=== PATIENT | female | born 1940 | race Caucasian/White ===

== ENCOUNTER → 2019-07-30 15:32 | Outpatient (BNVA) | payer MEDICARE, BC, SELFPAY | PROVIDERS: Family Provider Family Medicine; PCP Family Medicine; Visit Provider Family Medicine | DX: E03.9 Hypothyroidism, unspecified (principal); E11.65 Type 2 diabetes mellitus with hyperglycemia; G47.00 Insomnia, unspecified; J44.9 Chronic obstructive pulmonary disease, unspecified; I10 Essential (primary) hypertension; G62.9 Polyneuropathy, unspecified; F41.8 Other specified anxiety disorders | CPT/HCPCS: 80053; 80061; 83036; 84443; 85025 ==

== ENCOUNTER → 2019-08-13 10:24 | Outpatient (BNVA) | payer MEDICARE, BC, SELFPAY | PROVIDERS: Family Provider Family Medicine; PCP Family Medicine; Referring Provider Specialist; Visit Provider Chiropractor | DX: M51.36 Other intervertebral disc degeneration, lumbar region (principal); M47.816 Spondylosis without myelopathy or radiculopathy, lumbar region; M48.062 Spinal stenosis, lumbar region with neurogenic claudication; M54.12 Radiculopathy, cervical region; M47.812 Spondylosis without myelopathy or radiculopathy, cervical region; M62.830 Muscle spasm of back; Z79.891 Long term (current) use of opiate analgesic | CPT/HCPCS: 99205 ==

== ENCOUNTER → 2019-08-20 13:24 | Outpatient (BNVA) | payer MEDICARE, BC, SELFPAY | PROVIDERS: Family Provider Family Medicine; PCP Family Medicine; Visit Provider Anesthesiology Pain Medicine | DX: M47.816 Spondylosis without myelopathy or radiculopathy, lumbar region (principal); M48.062 Spinal stenosis, lumbar region with neurogenic claudication; Z79.891 Long term (current) use of opiate analgesic | CPT/HCPCS: 64493; 64494; 64495; 64520; J2001; J3490 ==

== ENCOUNTER → 2019-10-31 14:36 | Outpatient (BNVA) | payer MEDICARE, BC, SELFPAY | PROVIDERS: Family Provider Family Medicine; PCP Family Medicine; Visit Provider Family Medicine | DX: E78.5 Hyperlipidemia, unspecified (principal); E11.65 Type 2 diabetes mellitus with hyperglycemia; E03.9 Hypothyroidism, unspecified; J44.9 Chronic obstructive pulmonary disease, unspecified; J43.9 Emphysema, unspecified; I10 Essential (primary) hypertension; M54.12 Radiculopathy, cervical region | CPT/HCPCS: 80053; 80061; 83036; 84443; 85025 ==

== ENCOUNTER → 2020-02-13 09:48 | Outpatient (BNVA) | payer MEDICARE, BC, SELFPAY | PROVIDERS: Family Provider Family Medicine; PCP Family Medicine; Visit Provider Anesthesiology Pain Medicine | DX: M48.062 Spinal stenosis, lumbar region with neurogenic claudication (principal); M47.816 Spondylosis without myelopathy or radiculopathy, lumbar region; M51.36 Other intervertebral disc degeneration, lumbar region; M54.12 Radiculopathy, cervical region; M47.812 Spondylosis without myelopathy or radiculopathy, cervical region; M62.830 Muscle spasm of back; Z79.891 Long term (current) use of opiate analgesic | CPT/HCPCS: 99213 ==

== ENCOUNTER → 2020-02-25 14:21 | Outpatient (BNVA) | payer MEDICARE, BC, SELFPAY | PROVIDERS: Family Provider Family Medicine; PCP Family Medicine; Visit Provider Anesthesiology Pain Medicine | DX: M47.816 Spondylosis without myelopathy or radiculopathy, lumbar region (principal); M48.062 Spinal stenosis, lumbar region with neurogenic claudication; Z79.891 Long term (current) use of opiate analgesic | CPT/HCPCS: 64493; 64494; 64495; J3490 ==

== ENCOUNTER → 2020-03-12 10:43 | Outpatient (BNVA) | payer MEDICARE, BC, SELFPAY | PROVIDERS: Family Provider Family Medicine; PCP Family Medicine; Visit Provider Anesthesiology Pain Medicine | DX: M48.062 Spinal stenosis, lumbar region with neurogenic claudication (principal); M51.36 Other intervertebral disc degeneration, lumbar region; M47.816 Spondylosis without myelopathy or radiculopathy, lumbar region; M54.12 Radiculopathy, cervical region; M47.812 Spondylosis without myelopathy or radiculopathy, cervical region; M62.830 Muscle spasm of back; Z79.891 Long term (current) use of opiate analgesic | CPT/HCPCS: 99213 ==

== ENCOUNTER → 2020-03-14 11:02 | Outpatient (BNVA) | payer MEDICARE, BC, SELFPAY | PROVIDERS: Family Provider Family Medicine; PCP Family Medicine; Visit Provider Family Medicine | DX: E78.5 Hyperlipidemia, unspecified (principal); E11.65 Type 2 diabetes mellitus with hyperglycemia; I10 Essential (primary) hypertension; J20.9 Acute bronchitis, unspecified | CPT/HCPCS: 80053; 80061; 83036; 84443; 85025 ==

== ENCOUNTER → 2020-04-09 12:50 | Outpatient (BNVA) | payer MEDICARE, BC, SELFPAY | PROVIDERS: Family Provider Family Medicine; PCP Family Medicine; Visit Provider Anesthesiology Pain Medicine | DX: M47.816 Spondylosis without myelopathy or radiculopathy, lumbar region (principal); M48.062 Spinal stenosis, lumbar region with neurogenic claudication; Z79.891 Long term (current) use of opiate analgesic | CPT/HCPCS: 64635; 64636; J1030 ==

== ENCOUNTER → 2020-04-29 14:20 | Outpatient (BNVA) | payer MEDICARE, BC, SELFPAY | PROVIDERS: Family Provider Family Medicine; PCP Family Medicine; Visit Provider Anesthesiology Pain Medicine | DX: M47.816 Spondylosis without myelopathy or radiculopathy, lumbar region (principal); M48.062 Spinal stenosis, lumbar region with neurogenic claudication; Z79.891 Long term (current) use of opiate analgesic | CPT/HCPCS: 64635; 64636; J1030 ==

== ENCOUNTER → 2020-05-15 12:59 | Outpatient (BNVA) | payer MEDICARE, BC, SELFPAY | PROVIDERS: Family Provider Family Medicine; PCP Family Medicine; Visit Provider Anesthesiology Pain Medicine | DX: M47.816 Spondylosis without myelopathy or radiculopathy, lumbar region (principal); M48.062 Spinal stenosis, lumbar region with neurogenic claudication; M51.36 Other intervertebral disc degeneration, lumbar region; M54.12 Radiculopathy, cervical region; M47.812 Spondylosis without myelopathy or radiculopathy, cervical region; M79.605 Pain in left leg; M62.830 Muscle spasm of back | CPT/HCPCS: 99214 ==

== ENCOUNTER → 2020-05-27 14:03 | Outpatient (BNVA) | payer MEDICARE, BC, SELFPAY | PROVIDERS: Family Provider Family Medicine; PCP Family Medicine; Visit Provider Anesthesiology Pain Medicine | DX: M48.061 Spinal stenosis, lumbar region without neurogenic claudication (principal); M48.062 Spinal stenosis, lumbar region with neurogenic claudication; M54.16 Radiculopathy, lumbar region; Z79.891 Long term (current) use of opiate analgesic | CPT/HCPCS: 64483; 64484; J1100; J3490 ==

== ENCOUNTER → 2020-06-12 13:24 | Outpatient (BNVA) | payer MEDICARE, BC, SELFPAY | PROVIDERS: Family Provider Family Medicine; PCP Family Medicine; Visit Provider Anesthesiology Pain Medicine | DX: M47.816 Spondylosis without myelopathy or radiculopathy, lumbar region (principal); M48.062 Spinal stenosis, lumbar region with neurogenic claudication; M51.36 Other intervertebral disc degeneration, lumbar region; M54.12 Radiculopathy, cervical region; M47.812 Spondylosis without myelopathy or radiculopathy, cervical region; M62.830 Muscle spasm of back; Z79.891 Long term (current) use of opiate analgesic | CPT/HCPCS: 99213 ==

== ENCOUNTER → 2020-08-12 14:01 | Outpatient (BNVA) | payer MEDICARE, BC, SELFPAY | PROVIDERS: Family Provider Family Medicine; PCP Family Medicine; Visit Provider Anesthesiology Pain Medicine | DX: M47.816 Spondylosis without myelopathy or radiculopathy, lumbar region (principal); M48.062 Spinal stenosis, lumbar region with neurogenic claudication; M51.36 Other intervertebral disc degeneration, lumbar region; M54.12 Radiculopathy, cervical region; M47.812 Spondylosis without myelopathy or radiculopathy, cervical region; M62.830 Muscle spasm of back | CPT/HCPCS: 99214 ==

== ENCOUNTER → 2020-09-09 15:37 | Outpatient (BNVA) | payer MEDICARE, BC, SELFPAY | PROVIDERS: Family Provider Family Medicine; PCP Family Medicine; Visit Provider Family Medicine | DX: E78.5 Hyperlipidemia, unspecified (principal); E03.9 Hypothyroidism, unspecified; E11.65 Type 2 diabetes mellitus with hyperglycemia; I10 Essential (primary) hypertension; Z68.34 Body mass index [BMI] 34.0-34.9, adult; F17.211 Nicotine dependence, cigarettes, in remission | CPT/HCPCS: 80053; 80061; 83036; 84443; 85025 ==

== ENCOUNTER → 2020-10-23 13:00 | Outpatient (BNVA) | payer MEDICARE, BC, SELFPAY | PROVIDERS: Family Provider Family Medicine; PCP Family Medicine; Visit Provider Anesthesiology Pain Medicine | DX: M48.062 Spinal stenosis, lumbar region with neurogenic claudication (principal); M47.816 Spondylosis without myelopathy or radiculopathy, lumbar region; M51.36 Other intervertebral disc degeneration, lumbar region; M54.12 Radiculopathy, cervical region; M47.812 Spondylosis without myelopathy or radiculopathy, cervical region; M62.830 Muscle spasm of back; Z79.891 Long term (current) use of opiate analgesic | CPT/HCPCS: 99214 ==

== ENCOUNTER → 2020-11-03 13:30 | Outpatient (BNVA) | payer MEDICARE, BC, SELFPAY | PROVIDERS: Family Provider Family Medicine; PCP Family Medicine; Visit Provider Anesthesiology Pain Medicine | DX: Z01.812 Encounter for preprocedural laboratory examination (principal); E11.9 Type 2 diabetes mellitus without complications; M54.16 Radiculopathy, lumbar region; M48.062 Spinal stenosis, lumbar region with neurogenic claudication | CPT/HCPCS: 64483; 64484 ==

== ENCOUNTER → 2020-11-18 09:12 | Outpatient (BNVA) | payer MEDICARE, BC, SELFPAY | PROVIDERS: Family Provider Family Medicine; PCP Family Medicine; Visit Provider Anesthesiology Pain Medicine | DX: M47.816 Spondylosis without myelopathy or radiculopathy, lumbar region (principal); M48.062 Spinal stenosis, lumbar region with neurogenic claudication; M54.12 Radiculopathy, cervical region; M51.36 Other intervertebral disc degeneration, lumbar region; M47.812 Spondylosis without myelopathy or radiculopathy, cervical region; M62.830 Muscle spasm of back; Z87.891 Personal history of nicotine dependence | CPT/HCPCS: 99213 ==

== ENCOUNTER → 2020-12-18 17:17 | Outpatient (BNVA) | payer MEDICARE, BC, SELFPAY | PROVIDERS: Family Provider Family Medicine; PCP Family Medicine; Visit Provider Family Medicine | DX: E03.9 Hypothyroidism, unspecified (principal); E11.65 Type 2 diabetes mellitus with hyperglycemia; E55.9 Vitamin D deficiency, unspecified; E78.5 Hyperlipidemia, unspecified; I10 Essential (primary) hypertension; J43.9 Emphysema, unspecified | CPT/HCPCS: 80053; 80061; 82306; 82607; 83036; 84443; 85025 ==

== ENCOUNTER → 2021-01-20 08:58 | Outpatient (BNVA) | payer MEDICARE, BC, SELFPAY | PROVIDERS: Family Provider Family Medicine; PCP Family Medicine; Visit Provider Anesthesiology Pain Medicine | DX: M48.062 Spinal stenosis, lumbar region with neurogenic claudication (principal); M47.816 Spondylosis without myelopathy or radiculopathy, lumbar region; M51.36 Other intervertebral disc degeneration, lumbar region; M54.12 Radiculopathy, cervical region; M47.812 Spondylosis without myelopathy or radiculopathy, cervical region; M62.830 Muscle spasm of back | CPT/HCPCS: 99213 ==

== ENCOUNTER 2021-02-08 11:59 | Emergency (ER) | payer MEDICARE, BC, SELFPAY ==
--- NOTE | 2021-02-08 12:01 | CTR_ITS ---
PROCEDURE INFORMATION: Exam: CT Abdomen And Pelvis With Contrast Exam date and time: 02/08/2021 12:01 PM Age: 80 years old Clinical indication: Abdominal pain; Localized; Right; Additional info: Rlq severe pain TECHNIQUE: Imaging protocol: Computed tomography of the abdomen and pelvis with contrast. Radiation optimization: All CT scans at this facility use at least one of these dose optimization techniques: automated exposure control; mA and/or kV adjustment per patient size (includes targeted exams where dose is matched to clinical indication); or iterative reconstruction. Contrast material: OMNI 300; Contrast volume: 95 ml; Contrast route: INTRAVENOUS (IV); COMPARISON: CT abdomen pelvis w con* [id number] 09/19/2017 3:23 PM RADIATION DOSE METRICS: Total DLP (mGy-cm): 1693.31 FINDINGS: Liver: Findings consistent with fatty infiltration of the liver are identified. Gallbladder and bile ducts: There has been a cholecystectomy. Pancreas: Normal. No ductal dilation. Spleen: Normal. No splenomegaly. Adrenal glands: Normal. No mass. Kidneys and ureters: Normal. No hydronephrosis. Stomach and bowel: Unremarkable. No obstruction. No mucosal thickening. Appendix: The appendix is not seen. Intraperitoneal space: Unremarkable. No free air. No significant fluid collection. Vasculature: Unremarkable. No abdominal aortic aneurysm. Lymph nodes: Unremarkable. No enlarged lymph nodes. Urinary bladder: Unremarkable as visualized. Reproductive: There has been a hysterectomy. Bones/joints: Degenerative change is identified in the spine. There is no evidence for acute fracture or malalignment. Soft tissues: Unremarkable. CT/CT abdomen pelvis w con* [id number] IMPRESSION: There are no acute concerning abnormalities. Radiation Dose CTDIVOL = (mGy): DLP = 1693.31 (mGy-cm)
[2021-02-08 12:23] VITALS: BP 143/63; PULSE 55; RESP 16; TEMP 36.5; O2SAT 98
--- NOTE | 2021-02-08 12:23 | ED_ITS ---
HPI - General Adult General: Chief complaint: Abdominal Pain Stated complaint: PAIN IN LOWER R SIDE Time Seen by Provider: 02/08/21 12:01 History of Present Illness: HPI narrative: 80-year-old female with a history of prediabetes, prior appendectomy, and hysterectomy presents emergency room for evaluation of sharp right-sided abdominal pain x1 day. Patient states that she was at rest when this pain started. Since then, patient has had intermittent sharp crampy pain on the right side of her abdomen radiating into his the middle. Patient has nausea denies vomiting. Took a dose of hydrocodone without any improvement in symptoms. Patient has no fever no chills, diarrhea, melena hematochezia, complaints or vaginal complaints at this time. Denies any chest pain shortness breath, palpitation or lightheadedness, cough, runny nose, sore throat or other neurological complaints. Onset: 1 day ago Duration:1 day Location:home Severity:moderate Review of Systems Narrative: Constitutional: No fever, no chills. HEENT: No vision changes CV: No chest pain, no palpitations PULM: no cough, no dyspnea. GI: + R sided abdominal pain, +N/-V/-D. : No dysuria MSKEL: No muscle pain SKIN: No new rashes, no lesions. NEURO: No headache, no focal weakness. 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 Benign essential hypertension Chronic idiopathic constipation COPD (chronic obstructive pulmonary disease) with emphysema Dyslipidemia Encounter for counseling for care management of patient with chronic conditions and complex health needs using nurse-based model Enrolled in chronic care management Generalized osteoarthritis of multiple sites History of colon polyps Idiopathic neuropathy Joint instability Lumbar stenosis with neurogenic claudication Mild cognitive impairment Obstructive sleep apnea Polyneuropathy, peripheral sensorimotor axonal Spondylolisthesis, 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 Type 2 diabetes mellitus with hyperglycemia Vitamin D deficiency Surgical History Hx of appendectomy Hx of cholecystectomy Hx of colonoscopy (~11/2017) repeat 5 yrs Hx of hysterectomy Hx of repair of left rotator cuff (~2013) distal clavicle resection and acromaplasty and exploration rotor cuff; Dr Clarke, [place] [facility] [place]; 02/20/2019 Family History Mother CAD (coronary artery disease) Sister CAD (coronary artery disease) Cancer lung Social History Smoking and tobacco status: former smoker Second hand smoke exposure: No Alcohol intake: never Household members: spouse Housing: House Marital status: Current occupational status: retired 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 No CVA tenderness to percussion. Neg Motta/Neg McBurney's point tenderness, no suprabupic tenderness to palpation. EXTREMITY: Normal ROM SKIN: No rash or erythema NEURO: Awake and alert, no focal motor deficits PSYCH: Normal mood and affect Course Vital Signs: Vital signs: Vital Signs Temperature 97.7 F 02/08/21 12:23 Pulse Rate 55 L 02/08/21 12:23 Respiratory Rate 16 02/08/21 13:07 Blood Pressure 143/63 02/08/21 12:23 Pulse Oximetry 98 02/08/21 12:23 MDM - General Adult MDM Narrative: Medical decision making narrative: 80-year-old female with a history of prediabetes, prior appendectomy, hysterectomy presenting to the emergency room with complaints of right side abdominal pain x1 day. On exam precaution has moderate tenderness to palpation on the right side of the abdomen. White count of 11.9. EKG showing regular sinus rhythm at HT of [56]. Normal axis. No ST elevations/depressions to suggest coronary occlusion. Normal OH, QRS, QT interv als. CT abdomen pelvis did not show any focal findings. Patient is noted to have a troponin of 14 with repeat troponin of 14. At the present time, I do not suspect the patient is having acute cardiac event. In any case, I have discussed this with patient who reports that he wants to follow-up with outpatient provider for further evaluation of his symptoms. I have made the patient an appoint with cardiology. Patient's GI symptoms improved with a GI cocktail. No suspicion for TRAINING AND DEVELOPMENT ASSISTANT pathologies as pain is middle R side and patient has no TRAINING AND DEVELOPMENT ASSISTANT complaints at this time. Patient is tolerating p.o. without any difficulty. Disposition: Discharge. Patient is given strict return precautions for any worsening pain, fever/chills, diarrhea, blood in the stool, or any new concerning complaints Lab Data: Labs: Lab Results 02/08/21 02/08/21 02/08/21 Range/Units 12:35 12:35 12:35 WBC 11.9 H (4.0-10.0) 10^3/ uL RBC 4.96 (4.1-5.3) 10^6/u L Hgb 14.4 (11.5-15.3) g/dL Hct 43.1 (37.0-47.0) % MCV 86.9 (81-99) fl MCH 29.0 (28.0-34.0) pg MCHC 33.4 (30.0-36.0) g/dL RDW 13.7 (12.1-15.1) % Plt Count 284 (130-400) 10^3/c mm MPV 10.8 H (7.4-10.4) fL Neut % (Auto) 80.2 % Lymph % (Auto) 10.2 % Talbot % (Auto) 6.8 % Eos % (Auto) 1.9 % Baso % (Auto) 0.5 % Neut # (Auto) 9.56 H (1.8-7.7) 10^3/u L Lymph # (Auto) 1.2 (0.8-4.8) 10^3/u L Talbot # (Auto) 0.8 (0.2-0.9) 10^3/u L Eos # (Auto) 0.2 (0.0-0.8) 10^3/u L Baso # (Auto) 0.1 (0.0-0.1) 10^3/u L Nucleated RBC % (a uto) 0 % Nucleated RBCs # 0.0 /100WBC Sodium 132 L (136-145) mmol/L Potassium 4.4 (3.5-5.1) mmol/L Chloride 93 L (98-107) mmol/L Carbon Dioxide 30 H (22-29) mmol/L Anion Gap 13.4 (5-19) BUN 11 (8-23) mg/dL Creatinine 0.7 (0.5-0.9) mg/dL GFR Calculation Not Reportable Glucose 111 (65-115) mg/dL Calculated Osmolal ity 274 L (285-295) mOsm/k g Lactate (0.5-2.2) mmol/L Calcium 9.2 (8.5-10.5) mg/dL Total Bilirubin 0.6 (0.15-1.2) mg/dL AST 25 (0-32) U/L ALT 19 (0-33) U/L Alkaline Phosphata se 103 (35-105) IU/L Troponin T Gen 5 n g/L 14 H (0-10) ng/L Troponin T 120 Min marshall (0-10) ng/L Delta Troponin T (0-10) ABS# Total Protein 5.9 L (6.6-8.7) g/dL Albumin 4.1 (3.5-5.2) g/dL Globulin 1.8 (1.3-4.6) g/dL Lipase 20 (13-60) U/L Urine Color (Yellow) Urine Appearance (CLEAR) Urine pH (5-7) Ur Specific Gravit y (1.005-1.030) Urine Protein (Negative) Urine Glucose (UA) (Normal) Urine Ketones (Negative) Urine Blood (Negative) Urine Nitrate (Negative) Urine Bilirubin (Negative) Prot Sulfosalicyli c Acd (Negative) Urine Urobilinogen (Negative) mg/dL Ur Leukocyte Dionna ase (Negative) 02/08/21 02/08/21 02/08/21 Range/Units 12:35 15:11 15:30 WBC (4.0-10.0) 10^3/ uL RBC (4.1-5.3) 10^6/u L Hgb (11.5-15.3) g/dL Hct (37.0-47.0) % MCV (81-99) fl MCH (28.0-34.0) pg MCHC (30.0-36.0) g/dL RDW (12.1-15.1) % Plt Count (130-400) 10^3/c mm MPV (7.4-10.4) fL Neut % (Auto) % Lymph % (Auto) % Talbot % (Auto) % Eos % (Auto) % Baso % (Auto) % Neut # (Auto) (1.8-7.7) 10^3/u L Lymph # (Auto) (0.8-4.8) 10^3/u L Talbot # (Auto) (0.2-0.9) 10^3/u L Eos # (Auto) (0.0-0.8) 10^3/u L Baso # (Auto) (0.0-0.1) 10^3/u L Nucleated RBC % (a uto) % Nucleated RBCs # /100WBC Sodium (136-145) mmol/L Potassium (3.5-5.1) mmol/L Chloride (98-107) mmol/L Carbon Dioxide (22-29) mmol/L Anion Gap (5-19) BUN (8-23) mg/dL Creatinine (0.5-0.9) mg/dL GFR Calculation Glucose (65-115) mg/dL Calculated Osmolal ity (285-295) mOsm/k g Lactate 2.4 H (0.5-2.2) mmol/L Calcium (8.5-10.5) mg/dL Total Bilirubin (0.15-1.2) mg/dL AST (0-32) U/L ALT (0-33) U/L Alkaline Phosphata se (35-105) IU/L Troponin T Gen 5 n g/L (0-10) ng/L Troponin T 120 Min marshall 14.96 H (0-10) ng/L Delta Troponin T 0.96 (0-10) ABS# Total Protein (6.6-8.7) g/dL Albumin (3.5-5.2) g/dL Globulin (1.3-4.6) g/dL Lipase (13-60) U/L Urine Color Straw (Yellow) Urine Appearance Clear (CLEAR) Urine pH 8 H (5-7) Ur Specific Gravit y 1.010 (1.005-1.030) Urine Protein Neg (Negative) Urine Glucose (UA) Norm (Normal) Urine Ketones Negative (Negative) Urine Blood Neg (Negative) Urine Nitrate Negative (Negative) Urine Bilirubin Neg (Negative) Prot Sulfosalicyli c Acd Negative (Negative) Urine Urobilinogen Norm (Negative) mg/dL Ur Leukocyte Dionna ase Negative (Negative) Discharge Plan Discharge Patient Disposition: Home Clinical Impression: Abdominal pain Condition: Stable Prescriptions: No Action albuterol sulfate 2.5 mg /3 mL (0.083 %) solution for nebulization 2.5 mg INHALATION Q4H PRN (Reason: shortness of breath or wheezing) Qty: 180 RF: 3 cholecalciferol (vitamin D3) 25 mcg (1,000 unit) capsule 1,000 unit PO DAILY Qty: 30 RF: 3 polyethylene glycol 3350 [Miralax] 17 gram powder in packet 17 gm PO DAILY Qty: 100 RF: 2 hydrocodone-acetaminophen 5-325 mg tablet 1 tab PO BID PRN (Reason: pain) 30 Days Qty: 60 RF: 0 (DME) Truetrack Test Strip See Rx Instructions .ROUTE .MEDSUPPLY Qty: 10 RF: 0 Adult One Daily Multivitamin 0.4 mg tablet PO DAILY RF: 0 calcium carbonate [Calcium 600] 600 mg calcium (1,500 mg) tablet 600 mg PO DAILY RF: 0 aspirin 81 mg tablet,chewable 81 mg PO ONCE RF: 0 Incruse Ellipta 62.5 mcg/actuation blister with device 1 inh INHALATION DAILY Qty: 30 RF: 5 meloxicam [Mobic] 15 mg tablet 15 mg PO DAILY Qty: 30 RF: 4 albuterol sulfate [ProAir HFA] 90 mcg/actuation HFA aerosol inhaler 2 puff INHALATION Q6H PRN (Reason: shortness of breath or wheezing) Qty: 18 RF: 3 metformin 500 mg tablet See Rx Instructions .ROUTE .COMPLEX Qty: 60 RF: 5 tizanidine 4 mg tablet See Rx Instructions .ROUTE .COMPLEX Qty: 60 RF: 2 venlafaxine 75 mg capsule,extended release 24hr See Rx Instructions .ROUTE .COMPLEX Qty: 30 RF: 5 atorvastatin 40 mg tablet See Rx Instructions .ROUTE .COMPLEX Qty: 90 RF: 1 folic acid 1 mg tablet See Rx Instructions .ROUTE .COMPLEX Qty: 30 RF: 5 levothyroxine 112 mcg tablet See Rx Instructions .ROUTE .COMPLEX Qty: 90 RF: 0 promethazine-DM 6.25-15 mg/5 mL syrup See Rx Instructions .ROUTE .COMPLEX Qty: 160 RF: 0 potassium chloride 10 mEq capsule, extended release See Rx Instructions .ROUTE .COMPLEX Qty: 90 RF: 0 hydrochlorothiazide 25 mg tablet See Rx Instructions .ROUTE .COMPLEX Qty: 30 RF: 2 gabapentin 300 mg capsule See Rx Instructions .ROUTE .COMPLEX Qty: 270 RF: 1 Discharge Orders: Discharge ED (Routine); Ordered 02/08/21 Ordered By: Jammie Pillai Referrals: Tamara Rosales MD [Primary Care Provider] - Discharge Diet: Advance as tolerated Discharge Activity: Resume usual activity Patient Instructions: Abdominal Pain (ED) Activity Restrictions/Additional Instructions: Please follow up with a [facility] for evaluation of your heart. Our lead case manager will have you follow-up with [2] in the next few days. You would be expected to have a phone call with our lead case manager who will put you on the schedule. Come back the emergency room if you have any worsening pain or any new or concerning issues. Coding Level of Care Code ED Roll Bucker for Giovanni Byers
--- NOTE | 2021-02-08 12:26 | ECG_ITS ---
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 Measurements Intervals [place] Rate: 56 P: 54 CO: 194 QRS: 0 QRSD: 106 T: 76 QT: 439 QTc: 426 Interpretive Statements SINUS BRADYCARDIA LOW QRS VOLTAGE IN PRECORDIAL LEADS [QRS DEFLECTION < 1.0 mV IN CHEST LEADS] NONSPECIFIC ST & T-WAVE ABNORMALITY Compared to ECG 07/20/2014 15:39:21 Low QRS voltage now present Sinus rhythm no longer present Sinus arrhythmia no longer present T-wave abnormality still present Electronically Signed On 02-09-2021 19:22:54 CDT by Bethanie Martinez M.D. [email or web address] known as [id number] f
[2021-02-08 13:01] LABS: Basophils # 0.1 10^3/uL (0.0-0.1); Basophils % 0.5 %; Eosinophils # 0.2 10^3/uL (0.0-0.8); Eosinophils % 1.9 %; Hematocrit 43.1 % (37.0-47.0); Hemoglobin 14.4 g/dL (11.5-15.3); Lymphocytes # 1.2 10^3/uL (0.8-4.8); Lymphocytes % 10.2 %; Mean Corpuscular HGB Conc 33.4 g/dL (30.0-36.0); Mean Corpuscular Volume 86.9 fl (81-99); Mean Platelet Volume 10.8 fL (7.4-10.4); Monocytes # 0.8 10^3/uL (0.2-0.9); Monocytes % 6.8 %; Neutrophils # 9.56 10^3/uL (1.8-7.7); Neutrophils % 80.2 %; Nucleated Red Blood Cells % 0 %; Platelet Count 284 10^3/cmm (130-400); Red Blood Count 4.96 10^6/uL (4.1-5.3); Red Cell Distribution Width 13.7 % (12.1-15.1); White Blood Count 11.9 10^3/uL (4.0-10.0)
[2021-02-08 13:07] VITALS: RESP 16
[2021-02-08] MEDS: ondansetron 2 mg/ML SDV 2 mL 4 MG IVP (13:07)
[2021-02-08] MEDS: morphine 4 mg/mL SDV 1 mL IVP (13:07)
[2021-02-08] MEDS: sodium chloride 0.9% 250 ML IV (13:07)
[2021-02-08 13:18] LABS: Troponin T (5th) Once 14 ng/L (0-10)
[2021-02-08 13:19] LABS: Alanine Aminotransferase 19 U/L (0-33); Albumin Level 4.1 g/dL (3.5-5.2); Alkaline Phosphatase 103 IU/L (35-105); Anion Gap 13.4 (5-19); Aspartate Amino Transferase 25 U/L (0-32); Blood Urea Nitrogen 11 mg/dL (8-23); Calcium 9.2 mg/dL (8.5-10.5); Carbon Dioxide 30 mmol/L (22-29); Chloride 93 mmol/L (98-107); Globulin 1.8 g/dL (1.3-4.6); Glucose 111 mg/dL (65-115); Lipase 20 U/L (13-60); Osmolality Calculated 274 mOsm/kg (285-295); Potassium 4.4 mmol/L (3.5-5.1); Sodium 132 mmol/L (136-145); Total Bilirubin 0.6 mg/dL (0.15-1.2); Total Protein 5.9 g/dL (6.6-8.7)
[2021-02-08 13:20] LABS: Lactate (Lactic Acid level) 2.4 mmol/L (0.5-2.2)
[2021-02-08] MEDS: iohexol 300 mg/mL 100 mL Btl IV (13:43)
[2021-02-08 15:56] LABS: Troponin 5 2HR 14.96 ng/L (0-10)
[2021-02-08 16:03] LABS: Troponin 5 2HR Delta 0.96 ABS# (0-10)
[2021-02-08 16:46] LABS: Add Urine Microscopic? NO; Charge for UA Resulting for Rev
[2021-02-08 17:00] LABS: Bilirubin Urine Neg (Negative); Blood Urine Neg (Negative); Glucose Urine UA Norm (Normal); Ketones Urine Negative (Negative); Leukocyte Esterase Urine Negative (Negative); Nitrate Urine Negative (Negative); Protein Urine Neg (Negative); Sulfosalicylic Acid Urine Negative (Negative); Urine Appearance Clear (CLEAR); Urine Color Straw (Yellow); Urobilinogen Urine Norm (Negative); pH Urine 8 (5-7)
--- NOTE | 2021-02-09 12:31 | DCPLANNER ---
manager lean had message to schedule a follow up appointment for patient with [facility]. manager lean called [facility], spoke with Margarette, gave clinic patients information. A follow up appointment was scheduled for , February 19, 2021 at 2:[address] Herndon. manager lean called patient and gave patient the appointment information.
--- NOTE | 2021-02-20 09:03 | DCPLANNER ---
Patient had a follow up appointment scheduled for 02.19.21 with [facility] - patient did attend appointment.
== END 2021-02-08 18:06 | disposition home or self-care (01) ==
PROVIDERS: Emergency Provider Emergency Medicine; PCP Family Medicine
DX: R10.9 Unspecified abdominal pain (principal); Z79.82 Long term (current) use of aspirin; Z79.84 Long term (current) use of oral hypoglycemic drugs; I10 Essential (primary) hypertension; J44.9 Chronic obstructive pulmonary disease, unspecified; E78.5 Hyperlipidemia, unspecified; E11.42 Type 2 diabetes mellitus with diabetic polyneuropathy; Z87.891 Personal history of nicotine dependence
CPT/HCPCS: 36415; 74177; 80053; 81003; 83605; 83690; 84484; 85025; 87040; 93005; 96361; 96374; 96375; 99283; J2270; J2405; J7050; Q9967

== ENCOUNTER → 2021-03-03 15:52 | Outpatient (BNVA) | payer MEDICARE, BC, SELFPAY | PROVIDERS: PCP Family Medicine; Visit Provider Family Medicine | DX: E03.9 Hypothyroidism, unspecified (principal); K59.09 Other constipation | CPT/HCPCS: 84439; 84443; 84481 ==

== ENCOUNTER → 2021-03-19 13:45 | Outpatient (BNVA) | payer MEDICARE, BC, SELFPAY | PROVIDERS: PCP Family Medicine; Visit Provider Anesthesiology Pain Medicine | DX: M47.816 Spondylosis without myelopathy or radiculopathy, lumbar region (principal); M48.062 Spinal stenosis, lumbar region with neurogenic claudication; M51.36 Other intervertebral disc degeneration, lumbar region; M54.12 Radiculopathy, cervical region; M47.812 Spondylosis without myelopathy or radiculopathy, cervical region; M62.830 Muscle spasm of back; Z79.891 Long term (current) use of opiate analgesic | CPT/HCPCS: 99214 ==

== ENCOUNTER → 2021-03-31 16:51 | Outpatient (BNVA) | payer MEDICARE, BC, SELFPAY | PROVIDERS: PCP Family Medicine; Visit Provider Family Medicine | DX: E55.9 Vitamin D deficiency, unspecified (principal); E03.9 Hypothyroidism, unspecified; E78.5 Hyperlipidemia, unspecified; F41.9 Anxiety disorder, unspecified; F32.9 Major depressive disorder, single episode, unspecified; E11.65 Type 2 diabetes mellitus with hyperglycemia; I10 Essential (primary) hypertension | CPT/HCPCS: 80053; 80061; 82306; 83036; 83540; 84443; 85025 ==

== ENCOUNTER → 2021-04-02 13:54 | Outpatient (BNVA) | payer MEDICARE, BC, SELFPAY | PROVIDERS: PCP Family Medicine; Visit Provider Anesthesiology Pain Medicine | DX: Z01.812 Encounter for preprocedural laboratory examination (principal); E11.65 Type 2 diabetes mellitus with hyperglycemia; M47.816 Spondylosis without myelopathy or radiculopathy, lumbar region; M48.062 Spinal stenosis, lumbar region with neurogenic claudication; M54.16 Radiculopathy, lumbar region; Z79.891 Long term (current) use of opiate analgesic; Z79.84 Long term (current) use of oral hypoglycemic drugs; M25.551 Pain in right hip | CPT/HCPCS: 36416; 64635; 64636; 82962; J1030 ==

== ENCOUNTER → 2021-05-05 10:49 | Outpatient (BNVA) | payer MEDICARE, BC, SELFPAY | PROVIDERS: PCP Family Medicine; Visit Provider Anesthesiology Pain Medicine | DX: M47.816 Spondylosis without myelopathy or radiculopathy, lumbar region (principal); M48.062 Spinal stenosis, lumbar region with neurogenic claudication; M51.36 Other intervertebral disc degeneration, lumbar region; M54.12 Radiculopathy, cervical region; M47.812 Spondylosis without myelopathy or radiculopathy, cervical region; M79.604 Pain in right leg; M62.830 Muscle spasm of back; Z79.891 Long term (current) use of opiate analgesic | CPT/HCPCS: 99214 ==

== ENCOUNTER → 2021-06-30 15:53 | Outpatient (BNVA) | payer MEDICARE, BC, SELFPAY | PROVIDERS: PCP Family Medicine; Visit Provider Family Medicine | DX: E11.65 Type 2 diabetes mellitus with hyperglycemia (principal); E03.9 Hypothyroidism, unspecified; E78.5 Hyperlipidemia, unspecified; I10 Essential (primary) hypertension; J43.9 Emphysema, unspecified | CPT/HCPCS: 80053; 80061; 83036; 85025 ==

== ENCOUNTER → 2021-08-11 15:20 | Outpatient (BNVA) | payer MEDICARE, BC, SELFPAY | PROVIDERS: PCP Family Medicine; Visit Provider Family Medicine | DX: M25.50 Pain in unspecified joint (principal) | CPT/HCPCS: 80053; 84550; 85025; 85651; 86140; 86160; 86162; 86200; 86235; 86255; 86376; 86431 ==

== ENCOUNTER → 2021-08-27 14:01 | Outpatient (BNVA) | payer MEDICARE, BC, SELFPAY | PROVIDERS: PCP Family Medicine; Visit Provider Internal Medicine Cardiovascular Disease | DX: R55 Syncope and collapse (principal); I49.8 Other specified cardiac arrhythmias; E78.5 Hyperlipidemia, unspecified; E11.65 Type 2 diabetes mellitus with hyperglycemia; G47.33 Obstructive sleep apnea (adult) (pediatric); I10 Essential (primary) hypertension; J43.9 Emphysema, unspecified; Z87.891 Personal history of nicotine dependence | CPT/HCPCS: 99213 ==

== ENCOUNTER → 2021-09-08 13:39 | Outpatient (BNVA) | payer MEDICARE, BC, SELFPAY | PROVIDERS: PCP Family Medicine; Visit Provider Family Medicine | DX: M25.551 Pain in right hip (principal); M25.552 Pain in left hip; M51.36 Other intervertebral disc degeneration, lumbar region | CPT/HCPCS: 72114; 73523 ==

== ENCOUNTER → 2021-11-10 17:54 | Outpatient (BNVA) | payer MEDICARE, BC, SELFPAY | PROVIDERS: PCP Family Medicine; Visit Provider Family Medicine | DX: M48.061 Spinal stenosis, lumbar region without neurogenic claudication (principal); M54.16 Radiculopathy, lumbar region; E03.9 Hypothyroidism, unspecified; E78.5 Hyperlipidemia, unspecified; E11.65 Type 2 diabetes mellitus with hyperglycemia; G60.9 Hereditary and idiopathic neuropathy, unspecified; I10 Essential (primary) hypertension | CPT/HCPCS: 80053; 80061; 82607; 83036; 84443; 85025 ==

== ENCOUNTER → 2022-03-09 15:04 | Outpatient (BNVA) | payer MEDICARE, BC, SELFPAY | PROVIDERS: PCP Family Medicine; Visit Provider Internal Medicine Cardiovascular Disease | DX: I10 Essential (primary) hypertension (principal); R55 Syncope and collapse; R42 Dizziness and giddiness; R00.1 Bradycardia, unspecified; E78.5 Hyperlipidemia, unspecified; E11.65 Type 2 diabetes mellitus with hyperglycemia; Z79.84 Long term (current) use of oral hypoglycemic drugs; G47.33 Obstructive sleep apnea (adult) (pediatric); J43.9 Emphysema, unspecified; Z87.891 Personal history of nicotine dependence | CPT/HCPCS: 93225; 99213; 99214 ==

== ENCOUNTER → 2022-04-20 13:49 | Outpatient (BNVA) | payer MEDICARE, BC, SELFPAY | PROVIDERS: PCP Family Medicine; Referring Provider Family Medicine; Visit Provider Physician Assistant | DX: M48.062 Spinal stenosis, lumbar region with neurogenic claudication (principal); M51.37 Other intervertebral disc degeneration, lumbosacral region; M47.816 Spondylosis without myelopathy or radiculopathy, lumbar region; M43.16 Spondylolisthesis, lumbar region; M46.1 Sacroiliitis, not elsewhere classified | CPT/HCPCS: 72110; 99203 ==

== ENCOUNTER 2022-05-28 12:19 | Outpatient (CLI) | payer MEDICARE, BC, SELFPAY ==
--- NOTE | 2022-05-28 13:00 | MR_ITS ---
WS: [id number] MRI LUMBAR SPINE NONCONTRAST HISTORY: pain COMPARISON: 10/16/2018 and radiograph 04/20/2022 TECHNIQUE: Sagittal and axial multisequence imaging is submitted. Disc and facet arthritis causing mild stenosis at C3-4, C5-6 and C6-7. Straightening of the normal cervical lordosis. L2 retrolisthesis by 2 mm. L3 retrolisthesis by 6 mm. L5 retrolisthesis by 5 mm. Disc spaces are mildly narrowed and desiccated. Small amount of reactive marrow edema along the endpl ates of L4 and L5. No fractures. Conus terminates normally at L1-2 disc level. Mild disc bulging at T11-12 and T12-L1 without significant stenosis. L1-L2: Diffuse annular disc bulging. Mild osteophytosis. Mild ligamentum flavum hypertrophy. Very mil d foraminal narrowing and subarticular recess encroachment. L2-L3: Mild diffuse annular disc bulging. Mild facet arthritis. No significant stenosis. L3-L4: Retrolisthesis of L3 with annular disc bulging and facet joint arthritis. Central disc protrus ion. These findings resulting in severe central and bilateral subarticular recess stenosis and RIGHT foraminal stenosis. Only mild LEFT foraminal stenosis. Progression of stenosis since 2019. L4-L5: Marked annular disc bulging with facet joint arthritis. Severe central, bilateral subarticular recess stenosis and RIGHT foraminal stenosis. There may be additional disc protrusions in the RIGHT foramen. Moderate LEFT foraminal stenosis. Progression of stenosis since the prior study. Increase fl uid in the RIGHT facet joint. L5-S1: Retrolisthesis of L5. Mild central and bilateral subarticular recess stenosis. Moderate RIGHT and severe LEFT foraminal stenosis due to combination of osteophytes, facet disease and disc disease. MR/MR lumbar spine wo con* [id number] IMPRESSION: 1. Significant progression of degenerative disc disease and facet disease and stenoses since 10/16/2018. 2. Severe central, bilateral subarticular recess and RIGHT foraminal stenosis at L4-5 with moderate LEFT foraminal stenosis. 3. Severe central, bilateral subarticular recess and RIGHT foraminal stenosis at L3-4. 4. Severe LEFT foraminal stenosis with moderate RIGHT foraminal stenosis at L5 -S1. Mild central and bilateral subarticular recess stenosis.
== END 2022-05-28 12:20 | disposition home or self-care (01) ==
LOC: RAD 12:19
PROVIDERS: PCP Family Medicine; Visit Provider Physician Assistant
DX: M48.061 Spinal stenosis, lumbar region without neurogenic claudication (principal); M48.07 Spinal stenosis, lumbosacral region
CPT/HCPCS: 72148

== ENCOUNTER → 2022-06-03 14:58 | Outpatient (BNVA) | payer MEDICARE, BC, SELFPAY | PROVIDERS: PCP Family Medicine; Visit Provider Physician Assistant | DX: M51.37 Other intervertebral disc degeneration, lumbosacral region (principal); M48.062 Spinal stenosis, lumbar region with neurogenic claudication | CPT/HCPCS: 99213 ==

== ENCOUNTER → 2022-09-16 14:29 | Outpatient (BNVA) | payer MEDICARE, BC, SELFPAY | PROVIDERS: PCP Family Medicine; Visit Provider Family Medicine | DX: M51.36 Other intervertebral disc degeneration, lumbar region (principal); E55.9 Vitamin D deficiency, unspecified; E03.9 Hypothyroidism, unspecified; J43.9 Emphysema, unspecified; E11.65 Type 2 diabetes mellitus with hyperglycemia; I10 Essential (primary) hypertension | CPT/HCPCS: 80053; 80061; 83036; 84443; 85025 ==

== ENCOUNTER → 2022-10-08 09:19 | Outpatient (BNVA) | payer MEDICARE, BC, SELFPAY | PROVIDERS: PCP Family Medicine; Visit Provider Family Medicine | DX: E87.1 Hypo-osmolality and hyponatremia (principal) | CPT/HCPCS: 80048 ==

== ENCOUNTER → 2022-11-08 09:51 | Outpatient (BNVA) | payer MEDICARE, BC, SELFPAY | PROVIDERS: PCP Family Medicine; Visit Provider Family Medicine | DX: E87.1 Hypo-osmolality and hyponatremia (principal); I10 Essential (primary) hypertension | CPT/HCPCS: 80048 ==

== ENCOUNTER → 2022-11-22 12:52 | Outpatient (BNVA) | payer MEDICARE, BC, SELFPAY | PROVIDERS: PCP Family Medicine; Visit Provider Family Medicine | DX: I10 Essential (primary) hypertension (principal); E03.9 Hypothyroidism, unspecified | CPT/HCPCS: 84443 ==

== ENCOUNTER → 2022-12-16 15:11 | Outpatient (BNVA) | payer MEDICARE, BC, SELFPAY | PROVIDERS: PCP Family Medicine; Visit Provider Internal Medicine Cardiovascular Disease | DX: R07.9 Chest pain, unspecified (principal); Z87.891 Personal history of nicotine dependence; R06.02 Shortness of breath | CPT/HCPCS: 99214 ==

== ENCOUNTER 2022-12-30 09:27 | Outpatient (CLI) | payer MEDICARE, BC, SELFPAY ==
--- NOTE | 2022-12-30 | ECG_ITS ---
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 Interpretive Statements NAME OF STUDY: LEXISCAN SESTAMIBI STRESS TEST INDICATION: SOB on exertion PROCEDURE: At the baseline, the blood pressure was 174/79 mmHg with a heart rate of 85 bpm. The electrocardiogram showed sinus bradycardia nonspecific ST depression T wave abnormality. The Lexiscan was infused over a period of 20 seconds. A total of 0.4 milligrams of Lexiscan was infused. The stress phase was continued for a total of 5 minutes. Heart rate at the end of the stress phase was 70 bpm with a blood pressure 130/56 mmHg. The EKG at the peak infusion revealed no significant ST-T wave changes. Sestamibi was injected 20 seconds after the Lexiscan infusion. Blood pressure at the end of the recovery phase was 137/66 mmHg with a heart rate of 68 beats per minute. CONCLUSION: 1. No significant EKG changes with the LexiScan infusion. 2. No LexiScan induced chest pain or cardiac arrhythmia. 3. Normal blood pressure and heart rate response. 4. Sestamibi/sestamibi perfusion scan pending; see separate report. Electronically Signed On 01-07-2023 10:59:34 CDT by Bethanie Martinez M.D. [id number]
[2022-12-30 09:43] VITALS: BMI 29.3
--- NOTE | 2022-12-30 09:43 | NMCV_ITS ---
NM mar perf SPECT r/s* [id number] Mira Howe Age: 82 Gender: F : 1940 Exam Date: 12/30/2022 09:43 Ordering Phys: Bethanie Martinez MD ([email or web address]) Technologist: NISHA Lizama Exam Location: [facility] Indications: Chest Pain STRESS TEST [facility] IMAGE PROTOCOL Rest/Stress 1 Lexiscan Day Radiopharmaceutical Dose (mCi) Administration Site Administered by Rest: Tc-99m 10.4 IV Benny Muñoz, CANARY BREEDER Sestamibi Stress:Tc-99m 32.3 IV Benny Muñoz, CANARY BREEDER Sestamibi Rest: 30-Dec-2022 60 Discovery 630 Stress: 30-Dec-2022 30 Discovery 630 0.4mg Lexiscan. Images obtained in supine and prone position. SPECT RESULTS Technical Quality: Excellent Raw Data Analysis: Breast attenuation, Normal Image Corrections: No attenuation or motion correction applied Summed Stress Score: 11 Summed Rest Score: 4 Summed Difference Score: 7 PERFUSION FINDINGS Small sized perfusion abnormality of mild severity of basal to mid inferolateral wall on supine stress images with improved tracer uptake on prone stress images. Small size perfusion abnormality of mid to apical septal wall with somewhat improved tracer uptake on prone stress images. FUNCTIONAL RESULTS (calculated via Gated SPECT) Stress Image LV EF (%): 72 Stress EDV (mL):90 TID: 0.94 Stress ESV (mL):25 FUNCTIONAL FINDINGS: The left ventricle is normal in size. Transient Ischemia Dilatation of 0.94. The left ventricular ejection fraction is normal with a value of 72%. There is normal left ventricular wall thickening. Normal end diastolic end-systolic volumes. IMPRESSIONS 1. Small sized perfusion abnormality of mild severity of basal to mid inferolateral jasso on supine stress images with improved tracer uptake on prone stress images. This likely represents attenuation artifact. However, small area of ischemia in circumflex artery territory cannot be completely ruled out. 2. Small size paradoxical perfusion abnormality of mid to apical septal wall. This likely presents attenuation artifact. 3. Overall left ventricular systolic function is normal without regional wall motion abnormalities, LVEF=72%. 4. EKG portion of the study will be reported separately. Bethanie Martinez MD (Electronically Signed) Final Date: 05 January 2023 12:48 S
[2022-12-30] MEDS: regadenoson 0.4 Mg/5 ml Syringe IVP (11:39)
[2022-12-30 11:46] VITALS: BP 137/66; PULSE 68
== END 2022-12-30 09:28 | disposition home or self-care (01) ==
LOC: CDL 09:28
PROVIDERS: PCP Family Medicine; Visit Provider Internal Medicine Cardiovascular Disease
DX: R06.02 Shortness of breath (principal)
CPT/HCPCS: 36415; 78452; 93017; 96374; A9500; J2785

== ENCOUNTER → 2023-04-18 11:05 | Outpatient (BNVA) | payer MEDICARE, BC, SELFPAY | PROVIDERS: PCP Family Medicine; Visit Provider Family Medicine | DX: E03.9 Hypothyroidism, unspecified (principal); E11.65 Type 2 diabetes mellitus with hyperglycemia; E55.9 Vitamin D deficiency, unspecified; E78.5 Hyperlipidemia, unspecified; E87.1 Hypo-osmolality and hyponatremia; G60.8 Other hereditary and idiopathic neuropathies; J43.9 Emphysema, unspecified; Z13.6 Encounter for screening for cardiovascular disorders | CPT/HCPCS: 80053; 80061; 82607; 82652; 83036; 84443; 85025 ==

== ENCOUNTER → 2023-09-14 11:25 | Outpatient (BNVA) | payer MEDICARE, BC, SELFPAY | PROVIDERS: PCP Family Medicine; Visit Provider Internal Medicine Cardiovascular Disease | DX: I10 Essential (primary) hypertension (principal); E78.5 Hyperlipidemia, unspecified; F41.9 Anxiety disorder, unspecified; F32.9 Major depressive disorder, single episode, unspecified; E11.65 Type 2 diabetes mellitus with hyperglycemia; J43.9 Emphysema, unspecified; G47.33 Obstructive sleep apnea (adult) (pediatric); Z87.891 Personal history of nicotine dependence; Z79.84 Long term (current) use of oral hypoglycemic drugs | CPT/HCPCS: 99213 ==

== ENCOUNTER → 2023-10-04 15:44 | Outpatient (BNVA) | payer MEDICARE, BC, SELFPAY | PROVIDERS: PCP Family Medicine; Visit Provider Family Medicine | DX: I10 Essential (primary) hypertension (principal); E11.65 Type 2 diabetes mellitus with hyperglycemia; E03.9 Hypothyroidism, unspecified; E55.9 Vitamin D deficiency, unspecified; M51.36 Other intervertebral disc degeneration, lumbar region; Z13.6 Encounter for screening for cardiovascular disorders; F41.9 Anxiety disorder, unspecified; F32.9 Major depressive disorder, single episode, unspecified | CPT/HCPCS: 80053; 80061; 82607; 82652; 85025 ==

== ENCOUNTER → 2024-03-20 15:25 | Outpatient (BNVA) | payer MEDICARE, BC, SELFPAY | PROVIDERS: PCP Family Medicine; Visit Provider Family Medicine | DX: E11.65 Type 2 diabetes mellitus with hyperglycemia (principal); E78.5 Hyperlipidemia, unspecified; E55.9 Vitamin D deficiency, unspecified; E87.1 Hypo-osmolality and hyponatremia | CPT/HCPCS: 80053; 80061; 82607; 82652; 83036; 84443 ==

== ENCOUNTER 2024-04-09 15:04 | Outpatient (CLI) | payer MEDICARE, BC, SELFPAY ==
--- NOTE | 2024-04-09 15:08 | XRR_ITS ---
PROCEDURE INFORMATION: Exam: XR Left Shoulder Exam date and time: 04/09/2024 3:17 PM Age: 83 years old Clinical indication: Pain; Shoulder; Prior surgery; Surgery date: 6+ months; Surgery type: Collarbone reconstruction on left side; Additional info: M25.519 - pain in unspecified shoulder TECHNIQUE: Imaging protocol: Radiologic exam of the left shoulder. Views: 2 or more views. COMPARISON: CR XR cervical spine fl/ex [id number] 05/10/2019 3:23 PM FINDINGS: Bones/joints: Postop changes in the distal aspect of the left clavicle. Periarticular calcification with no fracture or dislocation. Lungs: Visualized lungs are unremarkable. Soft tissues: Normal. XR/XR shoulder LT min 2V* [id number] IMPRESSION: No acute findings.
--- NOTE | 2024-04-09 15:08 | XRR_ITS ---
PROCEDURE INFORMATION: Exam: XR Right Hip Exam date and time: 04/09/2024 3:17 PM Age: 83 years old Clinical indication: Hip pain; Right hip; Additional info: M25.551 - pain in right hip TECHNIQUE: Imaging protocol: Radiologic exam of the right hip. Views: 1 view hip with pelvis when performed. COMPARISON: CR XR hip BI m 5V wo/w pel* [id number] 09/08/2021 1:48 PM FINDINGS: Bones/joints: Osteoarthritis with no fractures or dislocations. Soft tissues: Unremarkable. XR/XR hip RT 2-3V wo/w pel* [id number] IMPRESSION: No acute findings.
== END 2024-04-09 15:05 | disposition home or self-care (01) ==
LOC: RAD 15:06
PROVIDERS: PCP Family Medicine; Visit Provider Family Medicine
DX: M16.11 Unilateral primary osteoarthritis, right hip (principal); M61.512 Other ossification of muscle, left shoulder
CPT/HCPCS: 73030; 73502

== ENCOUNTER 2024-04-24 18:21 | Emergency (ER) | payer MEDICARE, BC, SELFPAY ==
[2024-04-24 18:25] VITALS: BP 175/72; PULSE 55; RESP 18; TEMP 36.7; O2SAT 98
[2024-04-24 18:42] VITALS: BP 173/68; PULSE 55; RESP 16; O2SAT 97
--- NOTE | 2024-04-24 18:58 | PC.NURSE ---
pt report given to Kaylan GARCIA at 1849.
[2024-04-24 19:01] LABS: Basophils # 0.1 10^3/uL (0.0-0.1); Basophils % 0.5 %; Eosinophils # 0.3 10^3/uL (0.0-0.8); Eosinophils % 2.9 %; Hematocrit 40.9 % (36-47); Lymphocytes # 1.5 10^3/uL (0.8-4.8); Mean Corpuscular HGB Conc 32.5 g/dL (30-55); Mean Corpuscular Hemoglobin 28.2 pg (27-33); Mean Corpuscular Volume 86.8 fl (85-98); Mean Platelet Volume 11.6 fL (7.4-10.4); Monocytes # 1.2 10^3/uL (0.2-0.9); Monocytes % 12.1 %; Neutrophils # 6.93 10^3/uL (1.8-7.7); Neutrophils % 69.2 %; Nucleated Red Blood Cells % 0 %; Platelet Count 237 10^3/cmm (157-399); Red Blood Count 4.71 10^6/uL (3.85-5.65); Red Cell Distribution Width 14.1 % (12.1-15.1); White Blood Count 10.01 10^3/uL (3.29-11.43)
--- NOTE | 2024-04-24 19:03 | ED_ITS ---
HPI - General Adult 2 General: Chief complaint: General Medical Stated complaint: Shaking and tremors Time Seen by Provider: 04/24/24 18:24 History of Present Illness: Patient presents to the ER by EMS with thoughts that she got overheated today doing some work inside she could begin shaking all over and she just could not stop. Patient said she tried placing a chloride on her forehead this did not help. Patient said the ambulance ride here which was about 45 minutes patient shaking stopped totally and by the time she got here she was feeling peripherally back to normal. No other changes. Patient denies any other symptoms. Related Data Home Medications Medication Instructions Recorded Confirmed blood sugar diagnostic ([employer] #10 ea 06/04/19 09/14/23 Test strips) multivitamin with minerals-folic mg PO DAILY 06/04/19 09/14/23 acid 0.4 mg tablet (Adult One Daily Multivitamin) aspirin 81 mg chewable tablet 81 mg PO DAILY 02/19/21 09/14/23 mecobalamin (vitamin B12) 1,000 1,000 mcg PO DAILY 02/19/21 09/14/23 mcg chewable tablet calcium carbonate (Calcium 600) 1,200 mg PO DAILY 03/09/22 09/14/23 ferrous sulfate 325 mg (65 mg 325 mg PO DAILY PRN 03/09/22 09/14/23 iron) tablet,delayed release Previous Rx's Medication Instructions Recorded cholecalciferol (vitamin D3) 25 1,000 unit PO DAILY #30 caps 10/31/19 mcg (1,000 unit) capsule albuterol sulfate 2.5 mg/3 mL 2.5 mg (3 mL) inhalation Q4H PRN 11/10/21 (0.083 %) solution for nebulization shortness of breath or wheezing #180 mL intraoperative Neuromonitoring #1 ea 07/26/22 metformin 500 mg tablet See Rx Instructions .Route 07/13/23 .COMPLEX #180 tabs folic acid 1 mg tablet See Rx Instructions .Route 08/03/23 .COMPLEX #30 tabs potassium chloride 10 mEq See Rx Instructions .Route 09/26/23 capsule,extended release .COMPLEX #90 caps amoxicillin 875 mg tablet 875 mg PO BID infection #14 tabs 10/04/23 sodium chloride 1,000 mg soluble See Rx Instructions .Route 12/28/23 tablet .COMPLEX #30 tabs gabapentin 300 mg capsule See Rx Instructions .Route 01/16/24 .COMPLEX #270 caps levothyroxine 88 mcg tablet 88 mcg PO DAILY thyroid #90 tabs 02/16/24 atorvastatin 40 mg tablet See Rx Instructions .Route 03/12/24 .COMPLEX #90 tabs albuterol sulfate 90 mcg/actuation 2 puff inhalation Q6H PRN 03/20/24 aerosol inhaler shortness of breath or wheezing #18 grams fluticasone propionate 115 1 puff inhalation BID #12 grams 03/20/24 mcg-salmeterol 21 mcg/actuation HFA inhaler (Advair HFA) tizanidine 4 mg tablet See Rx Instructions .Route 03/23/24 .COMPLEX #60 tabs venlafaxine 75 mg capsule,extended See Rx Instructions .Route 03/23/24 release 24 hr .COMPLEX #90 caps Allergies Allergy/AdvReac Type Severity Reaction Status Date / Time codeine Allergy Unknown Unknown Verified 03/20/24 14:31 Review of Systems 2 General: Reports: 10 or more systems reviewed and unremarkable except in HPI and below PFSH ED 2 PFSH: Medical History 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 Pain management contract signed History of TIA (transient ischemic attack) Polyneuropathy, peripheral sensorimotor axonal Vitamin D deficiency Acquired hypothyroidism Dyslipidemia Anxiety and depression Type 2 diabetes mellitus with hyperglycemia Mild cognitive impairment Obstructive sleep apnea Idiopathic neuropathy 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 Benign essential hypertension COPD (chronic obstructive pulmonary disease) with emphysema Chronic idiopathic constipation Generalized osteoarthritis of multiple sites Joint instability Lumbar stenosis with neurogenic claudication Stenosis of cervical spine with myelopathy Spondylolisthesis, lumbosacral region History of colon polyps Surgical History S/P thyroidectomy Hx of hysterectomy Hx of appendectomy Hx of cholecystectomy Hx of repair of left rotator cuff (~2013) distal clavicle resection and acromaplasty and exploration rotor cuff; Dr Clarke, [facility]; 02/20/2019 Hx of colonoscopy (~11/2017) repeat 5 yrs Family History Mother CAD (coronary artery disease) Sister CAD (coronary artery disease) Cancer lung Social History (Reviewed 04/24/24 @ 19:04 by ADONIS Rodriguez Smoking and tobacco/nicotine status: former use of tobacco/nicotine Second hand smoke exposure: No Alcohol intake: never Substance/Drug Use: never Household members: spouse Housing: House Marital status: Current occupational status: retired 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 Physical Exam 2 Const: COMMON NORMALS: no acute distress, average body habitus, patient oriented x3, no limitations, healthy appearing, alert and well nourished HENMT: COMMON NORMALS: normocephalic, atraumatic, hearing grossly normal bilaterally, external ears normal, Normal external nose present and moist oral mucous membranes HEAD & SCALP: normocephalic and atraumatic NOSE: Normal external nose present EXTERNAL EAR: Yes external ears normal Neck/C-Spine: COMMON NORMALS: no JVD Chest: COMMONS NORMALS: normal inspection of the chest and normal palpation of entire chest wall Resp: COMMON NORMALS: normal respiratory effort, No retractions, No use of accessory muscles and clear to auscultation bilaterally AUSCULTATION: clear to auscultation bilaterally Cardio: COMMON NORMALS: no JVD, regular rate, regular rhythm, S1 normal heart sound present, S2 normal heart sound present, No gallops present (Cardio), No clicks present (Cardio), No murmurs present (Cardio) and No rub (Cardio) R ATE: regular rate RHYTHM: regular rhythm HEART SOUNDS: S1 normal heart sound present and S2 normal heart sound present GI: COMMON NORMALS: Normal to inspection, nondistended, normoactive bowel sounds present, Soft to palpation, non-tender, No hepatosplenomegaly present and no masses PALPATION: Yes Soft to palpation and Yes No hepatosplenomegaly present Neuro: COMMON NORMALS: patient oriented x3 SENSORIUM/ORIENTATION: Yes alert Course 2 Vital Signs: Vital signs: Vital Signs Temperature 98.1 F 04/24/24 18:25 Pulse Rate 55 L 04/24/24 18:42 Respiratory Rate 16 04/24/24 18:42 Blood Pressure 173/68 04/24/24 18:42 Pulse Oximetry 97 04/24/24 18:42 Oxygen Delivery Me thod Room Air 04/24/24 18:42 MDM - General Adult Medical Decision Making Lab work was reviewed which was all normal, patient be discharged. Medical Records I reviewed the patient's medical records. Lab Data I reviewed the patient's lab results. 04/24/24 18:43 04/24/24 18:43 Laboratory Results WBC 10.01 10^3/uL (3.29-11.43) 04/24/24 18:43 RBC 4.71 10^6/uL (3.85-5.65) 04/24/24 18:43 Hgb 13.30 g/dL (11.27-16.99) 04/24/24 18:43 Hct 40.9 % (36-47) 04/24/24 18:43 MCV 86.8 fl (85-98) 04/24/24 18:43 MCH 28.2 pg (27-33) 04/24/24 18:43 MCHC 32.5 g/dL (30-55) 04/24/24 18:43 RDW 14.1 % (12.1-15.1) 04/24/24 18:43 Plt Count 237 10^3/cmm (157-399) 04/24/24 18:43 MPV 11.6 fL (7.4-10.4) H 04/24/24 18:43 Neut % (Auto) 69.2 % 04/24/24 18:43 Lymph % (Auto) 15.0 % 04/24/24 18:43 [place] % (Auto) 12.1 % 04/24/24 18:43 Eos % (Auto) 2.9 % 04/24/24 18:43 Baso % (Auto) 0.5 % 04/24/24 18:43 Neut # (Auto) 6.93 10^3/uL (1.8-7.7) 04/24/24 18:43 Lymph # (Auto) 1.5 10^3/uL (0.8-4.8) 04/24/24 18:43 [place] # (Auto) 1.2 10^3/uL (0.2-0.9) H 04/24/24 18:43 Eos # (Auto) 0.3 10^3/uL (0.0-0.8) 04/24/24 18:43 Baso # (Auto) 0.1 10^3/uL (0.0-0.1) 04/24/24 18:43 Nucleated RBC % (auto) 0 % 04/24/24 18:43 Nucleated RBCs # 0.0 /100WBC 04/24/24 18:43 Sodium 136 mmol/L (136-145) 04/24/24 18:43 Potassium 3.8 mmol/L (3.5-5.1) 04/24/24 18:43 Chloride 97 mmol/L (98-107) L 04/24/24 18:43 Carbon Dioxide 30 mmol/L (22-29) H 04/24/24 18:43 Anion Gap 12.8 (5-19) 04/24/24 18:43 BUN 9 mg/dL (8-23) 04/24/24 18:43 Creatinine 0.8 mg/dL (0.5-0.9) 04/24/24 18:43 GFR Calculation Not Reportable 04/24/24 18:43 Glucose 96 mg/dL (65-115) 04/24/24 18:43 Calculated Osmolality 281 mOsm/kg (285-295) L 04/24/24 18:43 Calcium 10.3 mg/dL (8.5-10.5) 04/24/24 18:43 Total Bilirubin 0.4 mg/dL (0.15-1.2) 04/24/24 18:43 AST 32 U/L (0-32) 04/24/24 18:43 ALT 16 U/L (0-33) 04/24/24 18:43 Alkaline Phosphatase 95 U/L (35-105) 04/24/24 18:43 Total Protein 6.1 g/dL (6.6-8.7) L 04/24/24 18:43 Albumin 4.0 g/dL (3.5-5.2) 04/24/24 18:43 Globulin 2.1 g/dL (1.3-4.6) 04/24/24 18:43 Urine Color Yellow (Yellow) 04/24/24 19:07 Urine Appearance Clear (CLEAR) 04/24/24 19:07 Urine pH 7.0 (5-7) 04/24/24 19:07 Ur Specific [place] 1.004 (1.005-1.030) L 04/24/24 19:07 Urine Protein Negative (Negative) 04/24/24 19:07 Urine Glucose (UA) Negative (Normal) 04/24/24 19:07 Urine Ketones Negative (Negative) 04/24/24 19:07 Urine Blood Negative (Negative) 04/24/24 19:07 Urine Nitrate Negative (Negative) 04/24/24 19:07 Urine Bilirubin Negative (Negative) 04/24/24 19:07 Urine Urobilinogen 0.2 mg/dL (Negative) 04/24/24 19:07 Ur Leukocyte Esterase 1+ (Negative) A 04/24/24 19:07 Urine RBC 0-2 /hpf (0-2) 04/24/24 19:07 Urine WBC 6-10 /hpf (0-5) 04/24/24 19:07 Ur Squamous Epith Cells 0-5 /hpf (0-5) 04/24/24 19:07 Amorphous Sediment Not Reportable 04/24/24 19:07 Urine Bacteria None seen /hpf (NONE) 04/24/24 19:07 Hyaline Casts 0-4 /lpf H 04/24/24 19:07 All radiology interpretation(s) finalized by discharge Discharge Plan Discharge Patient Disposition: Home Clinical Impression: Benign essential hypertension Condition: Stable Prescriptions: No Action cholecalciferol (vitamin D3) 25 mcg (1,000 unit) capsule 1,000 unit PO DAILY Qty: 30 3RF mecobalamin (vitamin B12) 1,000 mcg tablet,chewable 1,000 mcg PO DAILY ferrous sulfate 325 mg (65 mg iron) tablet,delayed release (DR/EC) 325 mg PO DAILY PRN (DME) [employer] Test Strip See Rx Instructions .ROUTE .MEDSUPPLY Qty: 10 Rx Instructions: As directed Adult One Daily Multivitamin 0.4 mg tablet PO DAILY aspirin 81 mg tablet,chewable 81 mg PO DAILY calcium carbonate [Calcium 600] 600 mg calcium (1,500 mg) tablet 1,200 mg PO DAILY albuterol sulfate 2.5 mg /3 mL (0.083 %) solution for nebulization 2.5 mg INHALATION Q4H PRN (Reason: shortness of breath or wheezing) Qty: 180 3RF amoxicillin 875 mg tablet 875 mg PO BID Qty: 14 0RF albuterol sulfate 90 mcg/actuation HFA aerosol inhaler 2 puff INHALATION Q6H PRN (Reason: shortness of breath or wheezing) Qty: 18 3RF Advair HFA 115-21 mcg/actuation HFA aerosol inhaler 1 puff inhalation BID Qty: 12 4RF Rx Instructions: administer with spacer (DME) intraoperative Neuromonitoring See Rx Instructions .Route .MEDSUPPLY Qty: 1 0RF Rx Instructions: As directed metformin 500 mg tablet See Rx Instructions .ROUTE .COMPLEX Qty: 180 3RF Dose Instruction: TAKE ONE TABLET BY MOUTH TWICE DAILY Rx Instructions: TAKE ONE TABLET BY MOUTH TWICE DAILY folic acid 1 mg tablet See Rx Instructions .ROUTE .COMPLEX Qty: 30 11RF Dose Instruction: TAKE ONE TABLET BY MOUTH DAILY Rx Instructions: TAKE ONE TABLET BY MOUTH DAILY potassium chloride 10 mEq capsule, extended release See Rx Instructions .ROUTE .COMPLEX Qty: 90 3RF Dose Instruction: TAKE ONE CAPSULE BY MOUTH EVERY DAY Rx Instructions: TAKE ONE CAPSULE BY MOUTH EVERY DAY sodium chloride 1,000 mg tablet,soluble See Rx Instructions .ROUTE .COMPLEX Qty: 30 11RF Dose Instruction: TAKE ONE TABLET BY MOUTH DAILY Rx Instructions: TAKE ONE TABLET BY MOUTH DAILY gabapentin 300 mg capsule See Rx Instructions .ROUTE .COMPLEX Qty: 270 3RF Dose Instruction: TAKE THREE CAPSULES BY MOUTH THREE TIMES DAILY Rx Instructions: TAKE THREE CAPSULES BY MOUTH THREE TIMES DAILY levothyroxine 88 mcg tablet 88 mcg PO DAILY Qty: 90 3RF atorvastatin 40 mg tablet See Rx Instructions .ROUTE .COMPLEX Qty: 90 3RF Dose Instruction: TAKE ONE TABLET BY MOUTH DAILY Rx Instructions: TAKE ONE TABLET BY MOUTH DAILY tizanidine 4 mg tablet See Rx Instructions .ROUTE .COMPLEX Qty: 60 5RF Dose Instruction: TAKE ONE TABLET BY MOUTH TWICE DAILY NEEDED FOR MUSCLE SPASTICITY Rx Instructions: TAKE ONE TABLET BY MOUTH TWICE DAILY NEEDED FOR MUSCLE SPASTICITY venlafaxine 75 mg capsule,extended release 24hr See Rx Instructions .ROUTE .COMPLEX Qty: 90 1RF Dose Instruction: TAKE ONE CAPSULE BY MOUTH EVERY MORNING Rx Instructions: TAKE ONE CAPSULE BY MOUTH EVERY MORNING Discharge Orders: Discharge ED (Routine); Ordered 04/24/24 Ordered By: Derek Barriga Referrals: Junior Min DO [Primary Care Provider] - 1 week Patient Instructions: Hypertension (ED) Activity Restrictions/Additional Instructions: Your evaluation in the ER that included physical exam lab work did not reveal any acute cause of your symptomatology earlier today. Your blood pressure was elevated in the ER. Please keep a blood pressure log and take this to your family practice physician with within the next 7 days for further evaluation and treatment. Coding Level of Care Code ED Client Integration Manager for Giovanni Byers
[2024-04-24 19:14] LABS: Alanine Aminotransferase 16 U/L (0-33); Alkaline Phosphatase 95 U/L (35-105); Anion Gap 12.8 (5-19); Aspartate Amino Transferase 32 U/L (0-32); Blood Urea Nitrogen 9 mg/dL (8-23); Calcium 10.3 mg/dL (8.5-10.5); Carbon Dioxide 30 mmol/L (22-29); Chloride 97 mmol/L (98-107); Globulin 2.1 g/dL (1.3-4.6); Glucose 96 mg/dL (65-115); Osmolality Calculated 281 mOsm/kg (285-295); Potassium 3.8 mmol/L (3.5-5.1); Sodium 136 mmol/L (136-145); Total Bilirubin 0.4 mg/dL (0.15-1.2); Total Protein 6.1 g/dL (6.6-8.7)
[2024-04-24 19:30] LABS: Bilirubin Urine Negative (Negative); Blood Urine Negative (Negative); Glucose Urine UA Negative (Normal); Ketones Urine Negative (Negative); Leukocyte Esterase Urine 1+ (Negative); Nitrate Urine Negative (Negative); Protein Urine Negative (Negative); Specific Gravity, Urine 1.004 (1.005-1.030); Urine Appearance Clear (CLEAR); Urine Color Yellow (Yellow); Urobilinogen Urine 0.2 mg/dL (Negative)
[2024-04-24 19:31] VITALS: BP 161/79; PULSE 96; O2SAT 99
[2024-04-24 19:35] LABS: Add Urine Microscopic? YES; Bacteria Urine None Seen /hpf; Hyaline Casts Urine 0-4 /lpf; RBC Urine 0-2 /hpf (0-2); Squamous Epithelial Cell Urine 0-5 /hpf (0-5)
[2024-04-24 19:41] LABS: Add Urine Culture? No
[2024-04-24 20:01] VITALS: BP 159/70; PULSE 56; O2SAT 97
[2024-04-24 20:49] VITALS: BP 167/69; PULSE 63; O2SAT 97
== END 2024-04-24 20:50 | disposition home or self-care (01) ==
PROVIDERS: Emergency Provider Emergency Medicine; PCP Family Medicine
DX: I10 Essential (primary) hypertension (principal); Z79.82 Long term (current) use of aspirin; Z79.84 Long term (current) use of oral hypoglycemic drugs; Z87.891 Personal history of nicotine dependence; J44.9 Chronic obstructive pulmonary disease, unspecified; E11.65 Type 2 diabetes mellitus with hyperglycemia; E78.5 Hyperlipidemia, unspecified; Z86.73 Personal history of transient ischemic attack (TIA), and cerebral infarction without residual deficits
CPT/HCPCS: 80053; 81001; 85025; 99283

== ENCOUNTER → 2024-12-24 12:23 | Outpatient (BNVA) | payer MEDICARE, BC, SELFPAY | PROVIDERS: PCP Family Medicine; Visit Provider Family Medicine | DX: I10 Essential (primary) hypertension (principal); E78.5 Hyperlipidemia, unspecified; E11.65 Type 2 diabetes mellitus with hyperglycemia; E03.9 Hypothyroidism, unspecified; E55.9 Vitamin D deficiency, unspecified; K59.09 Other constipation; M48.061 Spinal stenosis, lumbar region without neurogenic claudication; M54.16 Radiculopathy, lumbar region | CPT/HCPCS: 80053; 80061; 82306; 82607; 83036; 84443; 85025 ==

== ENCOUNTER → 2025-04-10 08:54 | Outpatient (BNVA) | payer MEDICARE, BC, SELFPAY | PROVIDERS: PCP Family Medicine; Visit Provider Family Medicine | DX: E55.9 Vitamin D deficiency, unspecified (principal); F41.9 Anxiety disorder, unspecified; F32.9 Major depressive disorder, single episode, unspecified; E11.65 Type 2 diabetes mellitus with hyperglycemia; M48.061 Spinal stenosis, lumbar region without neurogenic claudication; M54.16 Radiculopathy, lumbar region | CPT/HCPCS: 80053; 82306; 83036 ==